=== PATIENT | male | born 1960 | race Hispanic/Latino ===

== ENCOUNTER 2023-07-24 11:20 | Emergency (ER) | payer OTHER ==
--- OUTSIDE RECORDS SUMMARY | 2023-07-24 11:23 | XMS REPORT | Continuity of Care Document ---
:1960 Author Organization [facility] t Address [address] [place] [address] Care Team Providers Name Role Phone Asked, No Pcp Primary Care Physician Unavailable Padilla Stark MD Attending Clinician ADRIANE SEPULVEDA Attending Clinician Unavailable JOHN NARAYAN Attending Clinician Unavailable Nurse, [facility] Attending Clinician Unavailable Lab, [facility] Pob I Attending Clinician Unavailable Carmen Gordon PA-C Attending Clinician Therapy, [facility] Covid Infusion Attending Clinician Unavailable Armando Mukherjee MD Attending Clinician ARMANDO MUKHERJEE Attending Clinician Unavailable Fernando Avelar Attending Clinician Doctor Unassigned, [place] Attending Clinician Unavailable Teresa Hutton Attending Clinician TERESA MONTERO Attending Clinician Unavailable Payers Payer Name Policy Type Policy Number Effective Date Expiration Date S ource Problems Condition Condition Condition Status Onset Resolution Last Treating Co mments Source Name Details Category Date Date Treatment Clinician Date No known No known Disease Unive rs active active ity of problems problems [facility] Allergies, Adverse Reactions, Alerts Allergy Allergy Status Severity Reaction(s) Onset Inactive Treating Comm ents Source Name Type Date Date Clinician NO KNOWN Drug Active Univers ALLERGIE Class ity of S [facility] Social History Social Habit Start Date Stop Date Quantity Comments Source Exposure to Yes [facility] SARS-CoV-2 (event) Medica l Branch Gender identity [facility] Sexual orientation Method ist [facility] Sex Assigned At [birth year] [facility] 00:00:00 00:00:00 Smoking Status Start Date Stop Date Source Tobacco smoking consumption unknown [facility] Medications Ordered Filled Start Stop Current Ordering Indication Dosage Frequency Signature Comments Components Source Medication Medication Date Date Medication? Clinician (SIG) Name Name vera 2020- No 700mg 700 mg, IV Univers b (EUA) 700 12-08 Infusion, it y of mg in NaCl 14:45: 15:35 ONCE, Wed [place] 0.9% (NS) 00 :00 12/08/20 at Medic al 270 mL 0845, For Branch infusion 1 dose
Ad manager stars as an IV infusion over 60 minutes through a PVC infusion set containing a 0.2 or 0.22 micron in-line polyethers ulfone filter.&nb sp; S low or stop infusion and treat as appropriat e if an infusion-r elated reaction occurs. Dilu domo infusion solution should be administer ed immediatel y. If immediate administra tion is not possible, store diluted bamlanivim ab infusion solution for up to 24 hours refrigerat ed at 2?C to 8?C (36?F to 46?F) or up to 7 hours at 20?C to 25?C (68?F to 77?F) including infusion time.<b r> vera No 700mg 700 mg, IV Univers b (EUA) 700 12-08 Infusion, it y of mg in NaCl 14:45: 15:35 ONCE, Wed [place] 0.9% (NS) 00 :00 12/08/20 at Medic al 270 mL 0845, For Branch infusion 1 dose
Ad manager stars as an IV infusion over 60 minutes through a PVC infusion set containing a 0.2 or 0.22 micron in-line polyethers ulfone filter.&nb sp; S low or stop infusion and treat as appropriat e if an infusion-r elated reaction occurs. Dilu domo infusion solution should be administer ed immediatel y. If immediate administra tion is not possible, store diluted bamlanivim ab infusion solution for up to 24 hours refrigerat ed at 2?C to 8?C (36?F to 46?F) or up to 7 hours at 20?C to 25?C (68?F to 77?F) including infusion time.<b r> No known No Univers medications [facility] No known No [facility] No known No [facility] No known No Univers medications [facility] Vital Signs Vital Name Observation Time Observation Value Comments Source Systolic blood 2020-12-08 16:09:00 118 mm[Hg] Univer sity [facility] Diastolic blood 2020-12-08 16:09:00 75 mm[Hg] Unive [facility] Heart rate 2020-12-08 16:09:00 93 /min [facility] Body temperature 2020-12-08 16:09:00 36.22 Lyndsey [facility] Respiratory rate 2020-12-08 16:09:00 20 /min [facility] Oxygen saturation in 2020-12-08 16:09:00 95 /min [facility] Arterial blood by [facility] Pulse oximetry [place] Body height 2020-12-08 13:53:00 165.1 cm [facility] Body weight 2020-12-08 13:53:00 78.019 kg [facility] BMI 2020-12-08 13:53:00 28.62 kg/m2 [facility] Procedures Procedure Date / Time Performed Performing Clinician [facility] e PHYSICIAN ORDERS 2020-12-07 06:01:00 Doctor Unassigned, No Unive [facility] Plan of Care Planned Activity Planned Date Details Comments Source Future Scheduled 2023-07-24 Hepatitis C screening [facility] Test 11:22:57 (procedure) [code = 094400093] Future Scheduled 2023-07-24 Screening for [facility] Test 11:22:57 malignant neoplasm of colon (procedure) [code = 635505847] Future Scheduled 2023-07-24 Screening for [facility] Test 11:22:57 malignant neoplasm of colon (procedure) [code = 136065068] Future Scheduled 2023-07-24 [facility]INGLES VACCINES (1 [facility] 11:22:57 of 2) [code = SHINGLES VACCINES (1 of 2)] Future Scheduled 2023-07-24 INFLUENZA VACCINE (#[facility]) [facility] Test 11:22:57 [code = INFLUENZA VACCINE (#1)] Future Scheduled 2023-07-24 65+ [facility]OCOCCAL [facility] Test 11:22:57 VACCINE (1 - PCV) [code = 65+ PNEUMOCOCCAL VACCINE (1 - PCV)] Future Scheduled 2023-07-24 Screening for [facility] Test 11:22:57 malignant neoplasm of colon (procedure) [code = 372173962] Future Scheduled 2023-07-24 Screening for [facility] Test 11:22:57 malignant neoplasm of colon (procedure) [code = 805233990] Future Scheduled 2023-07-24 Screening for [facility] Test 11:22:57 malignant neoplasm of colon (procedure) [code = 494737501] Future Scheduled 2023-07-24 COVID-19 VACCINE (#1) [facility] Test 11:22:57 [code = COVID-19 VACCINE (#1)] Future Scheduled 2021-12-[address] [facility] Hospital Test 16:39:28 (procedure) [code = 566110030] Future Scheduled 2021-12-06 COLONOSCOPY SCREENING [facility] Test 16:39:28 [code = COLONOSCOPY SCREENING] Future Scheduled 2021-12-06 SHINGLES VACCINES (#1) [facility] Test 16:39:28 [code = SHINGLES VACCINES (#1)] Future Scheduled 2021-12-06 INFLUENZA VACCINE [facility] Test 16:39:28 [code = INFLUENZA VACCINE] Future Scheduled 2021-12-06 COVID-19 VACCINE (1) Met [facility] Hospital Test 16:39:28 [code = COVID-19 VACCINE (1)] Encounters Start End Encounter Admission Attending Care Care Encounter Source Date/Time Date/Time Type Type Clinicians Facility Department ID 2021-07-20 2021-07-20 [facility] Padilla Stark [id number] [facility] 00:00:00 00:00:[address] Orders A. [address].1.[address] 3.430.2.7 Hospit a .3.862247 l .8 2021-06-24 2021-06-24 Outpatient Chela [facility] [id number] Univers 08:10:00 08:11:33 ADRIANE orquidea [facility] 2021-06-03 2021-06-03 Outpatient Chela [facility] [id number] Univers 08:20:00 08:11:00 ADRIANE [facility] 2021-05-31 2021-05-31 [facility] [id number] [place] 00:00:00 00:00:[address] 2021-02-25 2021-02-25 Travel 1.2.840.1 [id number] [id number] [facility] 00:00:00 00:00:[address] 3.430.2.7 0.2.7.3.698 Ho spita .3.685738 084.8 l .8 2020-12-22 2020-12-22 Letter Nurse, [place] [facility] [id number] Univers 00:00:00 00:00:00 (Out) Urgent Care Health 350.1.13.10 ity of Surgical 4.2.7.2.686 Dave as Specialti [phone] Il dical es 370 [facility] 2020-12-16 2020-12-16 Laboratory Lab, Adc [facility] Pob I [facility] 1.2. 840.114 [id number] Univers 16:11:37 16:31:37 [facility] 350.1.13.10 ity [facility] 4.2.7.2.686 Dave as Professio [phone] Il dical nal [address] 2020-12-16 2020-12-16 Outpatient R [facility] [id number] Univers 16:20:00 16:20:00 ity [facility] 2020-12-08 2020-12-08 Nurse Therapy, Ruma Covid Infusion [facility] 1.2.840.114 [id number] Univers 07:46:17 12:38:49 Visit Armando Mukherjee SPECIALTY 350.1.13.10 ity [place] [phone] [place] Sol[place] 2020-12-08 2020-12-08 Outpatient R MATHEUS [facility] [id number] Univers 08:00:00 08:00:00 ARMANDO ity of [facility] 2020-12-07 2020-12-07 Telephone Valentino [facility] 1.2.945.061 [id number] Univers 00:00:00 00:00:00 Fernando Chavez SPECIALTY 350.1.13.10 ity of [place]2.[place] [phone] [place] 2020-12-07 2020-12-07 Orders Doctor CARMEN 1.2.840.114 [id number] Univers 00:00:00 00:00:00 Only Unassigned, RAHEEL 350.1.13.10 ity of [facility] 4.2.7.2.686 Dave as [phone] [facility] 009 [place] 2020-12-06 2020-12-06 Laboratory Lab, Adc Fam Pob I [facility] 1.2. 840.114 [id number] Univers 18:58:08 19:18:08 Only Teresa Montero [facility] 350.1.13.10 ity of [place] 4.2.7.2.686 Dave as Professio [phone] [facility] 044 [place] Office [address] One 2020-12-06 2020-12-06 Outpatient R WINSTON [facility] [id number] Univers 19:00:00 19:00:00 TERESA young o f [facility] 2020-12-06 2020-12-06 Letter Doctor CARMEN 1.2.840.114 [id number] Univers 00:00:00 00:00:00 (Out) Unassigned, RAHEEL 350.1.13.10 ity of [facility] 4.2.7.2.686 Dave as [phone] [facility] 044 [place] Results This patient has no known results.
--- NOTE | 2023-07-24 13:42 | RAD REPORT ---
EXAM DESCRIPTION: CT - Head Brain Wo Cont - 07/24/2023 1:37 pm CLINICAL HISTORY: Headache;Dizziness Headache, drowsiness COMPARISON: No comparisons TECHNIQUE: All CT scans are performed using dose optimization technique as appropriate and may inclu de automated exposure control or mA/KV adjustment according to patient size. FINDINGS: No intracranial hemorrhage, hydrocephalus or extra-axial fluid collection.Mild to moderate generalized brain atrophy.No areas of brain edema or evidence of midline shift. The paranasal sinuses and mastoids are clear. The calvarium is intact. IMPRESSION: No acute intracranial abnormality.
[2023-07-24 14:00] LABS: Absolute Lymphocytes (CBC) 2.2 K/uL (0.7-4.9); Platelets 185 thou/uL (152-406)
[2023-07-24 14:07] LABS: Hematocrit 41.8 % (39.6-49.0); Lymphocytes % 41.5 % (15.3-44.8); MCV 100.7 fL (80-100); MPV 6.9 fL (7.6-11.3); RBC Red Blood Cell Count 4.16 M/uL (4.33-5.43)
[2023-07-24 14:20] LABS: Troponin High Sensitivity 4.3 pg/mL (<58.9)
[2023-07-24] MEDS ORDERED: DIPHENHYDRAMINE 50 MG/ML VIAL ONE (14:20)
[2023-07-24] MEDS ORDERED: DIPHENHYDRAMINE 12.5MG/5ML LIQ ONE (14:20)
[2023-07-24] MEDS ORDERED: NA CHLORIDE 0.9% 1,000 ML ONE (14:20)
[2023-07-24] MEDS ORDERED: KETOROLAC 30 MG/ML INJ ONE (14:20)
[2023-07-24] MEDS ORDERED: METOCLOPRAMIDE 10 MG/2mL INJ ONE (15:11)
--- NOTE | 2023-07-24 15:27 | EDPHYS ---
Physician Documentation [facility] Name: Neto Anderson Age: 63 yrs Sex: Male : 1960 Arrival Date: 07/24/2023 Time: 11:20 Bed 24 Private MD: Fernando Avelar B ED Physician Sourav Morales HPI: 07/24 11:50 This 63 yrs old Male presents to ER via Wheelchair with complaints of aj3 Dizziness, Weakness, Headache. 11:50 Patient is presenting with daughter and for worsening dizziness, lethargy and aj3 headache has been present since last week after starting metformin for recent diagnosis diabetes. He reports that he has to close his eyes to prevent him from feeling dizzy as he feels like he is spinning. No reports of any numbness/tingling, speech changes, acute vision changes, chest pain or shortness of breath. Historical: - Allergies: 11:42 No Known Allergies; jl7 - Home Meds: 11:42 Metformin Oral [Active]; jl7 - PMHx: 11:42 Hyperlipidemia; Diabetes mellitus; jl7 - Immunization history:: Adult Immunizations unknown. - Social history:: Smoking status: Patient denies any tobacco usage or history of. ROS: 11:50 Constitutional: Negative for fever, chills, and weight loss, Cardiovascular: Negative aj3 for chest pain, palpitations, and edema, Respiratory: Negative for shortness of breath, cough, wheezing, and pleuritic chest pain, Skin: Negative for injury, rash, and discoloration, 11:50 Neck: Positive for pain with movement, 11:50 Neuro: Positive for dizziness, headache, weakness, Negative for altered mental status, gait disturbance, numbness, syncope, tinnitus, tremor, visual changes, Exam: 11:50 Constitutional: This is a well developed, well nourished patient who is awake, alert, aj3 and in no acute distress. Neck: Supple, full range of motion without nuchal rigidity. Chest/axilla: Normal chest wall appearance and motion. Nontender with no deformity. No lesions are appreciated. Cardiovascular: Regular rate and rhythm with a normal S1 and S2. No gallops, murmurs, or rubs. Normal PMI, no JVD. No pulse deficits. Respiratory: Lungs have equal breath sounds bilaterally, clear to auscultation and percussion. No rales, rhonchi or wheezes noted. No increased work of breathing, no retractions or nasal flaring. Abdomen/GI: Soft, non-tender, with normal bowel sounds. No distension or tympany. No guarding or rebound. No evidence of tenderness throughout. Skin: Warm, dry with normal turgor. Normal color with no rashes, no lesions, and no evidence of cellulitis. MS/ Extremity: Pulses equal, no cyanosis. Neurovascular intact. Full, normal range of motion. 11:50 Eyes: Pupils equal round and reactive to light, extra-ocular motions intact. Lids and lashes normal. Conjunctiva and sclera are non-icteric and not injected. Cornea within normal limits. Periorbital areas with no swelling, redness, or edema. 11:50 Neuro: Orientation: is normal, appropriate for stated age, Cranial nerves: CN II- XII are normal as tested, Cerebellar function: is grossly normal, 14:35 ECG was reviewed by the Attending Physician. aj3 Vital Signs: 11:41 BP 138 / 79; Pulse 51; Resp 17; Temp 97.9; Pulse Ox 99% ; jl7 12:10 BP 143 / 81; Pulse 50; Resp 16; Pulse Ox 96% ; Pain 0/10; dd1 13:43 BP 145 / 73; Pulse 78; Resp 18; Pulse Ox 95% ; dd1 14:49 BP 131 / 77; Pulse 45; Resp 18; Pulse Ox 99% ; Pain 0/10; dd1 12:10 Pain Scale: Adult dd1 14:49 Pain Scale: Adult dd1 NIH Stroke Scale Scores: 11:50 NIHSS Score: 0 aj3 15:44 NIHSS Score: 0 dd1 [place] Coma Score: 11:50 Eye Response: spontaneous(4). Motor Response: obeys commands(6). Verbal Response: aj3 oriented(5). Total: 15. MDM: 11:46 Patient medically screened. aj3 12:00 Differential diagnosis: cardiac arrhythmia, CVA, head injury, near-syncope, syncope, aj3 TIA, vertigo. 14:40 Data reviewed: vital signs, nurses notes, lab test result(s), EKG, radiologic studies, aj3 CT scan, I have discussed the patient's presentation/case with the attending Emergency Department Physician;. I considered the following discharge prescriptions or medication management in the emergency department Medications were administered in the Emergency Department. See MAR. Independent interpretation of the following test(s) in the Emergency Department EKG: See my EKG interpretation above CT Scan: My interpretation is No head bleed noted. Independent interpretation of the following test(s) in the Emergency Department shelter monitor: rate is 50 beats/min, Rhythm is sinus bradycardia. Historians other than the Patient: Spouse/Significant Other: . Care significantly affected by the following chronic conditions: Hypertension. 14:40 Counseling: I had a detailed discussion with the patient and/or guardian regarding the 3 historical points, exam findings, and any diagnostic results supporting the discharge/admit diagnosis, lab results, radiology results, the need for outpatient follow up, to return to the emergency department if symptoms worsen or persist or if there are any questions or concerns that arise at home. Response to treatment: the patient's symptoms have markedly improved after treatment. 07/24 11:52 Order name: Glucose, Ancillary Testing; Complete Time: 13:23 EDOR 07/24 13:24 Order name: Basic Metabolic Panel; Complete Time: 14: 07/24 13:24 Order name: CBC with Diff; Complete Time: 14:07/24 13:24 Order name: Troponin HS; Complete Time: 14:31 07/24 13:24 Order name: CT Head Brain wo Cont; Complete Time: 13:46 07/24 13:24 Order name: EKG; Complete Time: 13:27 07/24 13:24 Order name: Cardiac monitoring; Complete Time: 13:58 07/24 13:24 Order name: EKG - Nurse/Tech; Complete Time: 14:38 07/24 13:24 Order name: IV Saline Lock; Complete Time: 13:58 07/24 13:24 Order name: Labs collected and sent; Complete Time: 13:58 07/24 13:24 Order name: O2 Per Protocol; Complete Time: :58 07/24 13:24 Order name: O2 Sat Monitoring; Complete Time: 13:58 EC:35 Rate is 47 beats/min. Rhythm is regular. QRS [place] is Normal. [place] interval is normal. QRS aj3 interval is normal. QT interval is normal. No ST changes noted. Clinical impression: Sinus bradycardia. Interpreted by me. Reviewed by me. Administered Medications: 14:16 Drug: Ketorolac IVP 15 mg IVP once Route: IVP; Site: right antecubital; dd1 14:16 Drug: NS 0.9% IV 1000 ml IV at 1000 ml once Route: IV; Rate: 1000 ml; Site: right dd1 antecubital; 15:46 Follow up: Response: No adverse reaction; IV Status: Completed infusion; IV Intake: dd1 1000ml 14:57 CANCELLED (Other Intervention Used): [id number] mg IVP once aj3 15:06 Drug: metoCLOPramide IVP 10 mg IVP once; over 1 to 2 minutes Route: IVP; Site: right dd1 antecubital; 15:07 Drug: diphenhydrAMINE IVP 12.5 mg IVP once Route: IVP; Site: right antecubital; dd1 Point of Care Testing: Blood Glucose: 11:42 Blood Glucose: 125 mg/dL; jl7 Ranges: Critical Glucose Levels:Adult <50 mg/dl or >400 mg/dl <40 mg/dl or >180 mg/dl Disposition: 20:21 I was immediately available on-site in the Emergency Department for consultation in the ms3 care of the patient. Disposition Summary: 07/24/23 15:27 Discharge Ordered Problem: new aj3 Symptoms: have improved aj3 Condition: Stable aj3 Diagnosis - Other headache syndrome aj3 - Dizziness and giddiness aj3 Followup: aj3 - With: Fernando Avelar MD - When: - Reason: Recheck today's complaints, Re-evaluation by your physician Followup: aj3 - With: Emergency Department - When: - Reason: Trouble breathing, Worsening of condition Discharge Instructions: - Discharge Summary Sheet aj3 Forms: - Medication Reconciliation Form aj3 - Thank You Letter aj3 - Antibiotic Education aj3 - Prescription Opioid Use aj3 - Patient Portal Instructions aj3 - Leadership Thank You Letter aj3 Prescriptions: - ketorolac 10 mg Oral tablet - take 1 tablet ORAL route every 8 hours as needed for pain; 9 tablet; Refills: aj3 0, Product Selection Permitted NIH Stroke Scale - NIH Stroke Score Date: 07/24/2023 Time: 11:50 Total Score = 0 10. Dysarthria (speech clarity - read or repeat words) - 0(Normal) 11. Extinction and Inattention (visual/tactile/auditory/spatial/personal) - 0(No abnormality) 1a. Level of Consciousness (LOC) - 0(Alert) 1b. Level of Consciousness (LOC) (Month \T\ Age) - 0(Both) 1c. LOC Commands (Open \T\ Closes Eyes/Digital Court Reporter) - 0(Both) 2. Best Gaze (Lateral Gaze Paresis) - 0(Normal) 3. Visual Field Loss - 0(No visual loss) 4. Facial Palsy - 0(Normal) 5a. Left Arm: Motor (10-second hold) - 0(No drift) 5b. Right Arm: Motor (10-second hold) - 0(No drift) 6a. Left Leg: Motor (5-second hold - always test supine) - 0(No drift) 6b. Right Leg: Motor (5-second hold - always test supine) - 0(No drift) 7. Limb Ataxia (finger/nose \T\ heel/serna - test with eyes open) - 0(Absent) 8. Sensory Loss (pinprick arms/legs/face) - 0(Normal) 9. Best Language: Aphasia (description/naming/reading) - 0(No aphasia) Initials: aj3 NIH Stroke Scale - NIH Stroke Score Date: 07/24/2023 Time: 15:44 Total Score = 0 10. Dysarthria (speech clarity - read or repeat words) - 0(Normal) 11. Extinction and Inattention (visual/tactile/auditory/spatial/personal) - 0(No abnormality) 1a. Level of Consciousness (LOC) - 0(Alert) 1b. Level of Consciousness (LOC) (Month \T\ Age) - 0(Both) 1c. LOC Commands (Open \T\ Closes Eyes/Digital Court Reporter) - 0(Both) 2. Best Gaze (Lateral Gaze Paresis) - 0(Normal) 3. Visual Field Loss - 0(No visual loss) 4. Facial Palsy - 0(Normal) 5a. Left Arm: Motor (10-second hold) - 0(No drift) 5b. Right Arm: Motor (10-second hold) - 0(No drift) 6a. Left Leg: Motor (5-second hold - always test supine) - 0(No drift) 6b. Right Leg: Motor (5-second hold - always test supine) - 0(No drift) 7. Limb Ataxia (finger/nose \T\ heel/serna - test with eyes open) - 0(Absent) 8. Sensory Loss (pinprick arms/legs/face) - 0(Normal) 9. Best Language: Aphasia (description/naming/reading) - 0(No aphasia) Initials: dd1 Signatures: Dispatcher [employer] Arina Jensen, RN RN jl7 Sourav Morales DO DO ms3 Jasmyn Haider, HEALTH AND SAFETY REPRESENTATIVE HEALTH AND SAFETY REPRESENTATIVE aj3 Red Morrissey RN RN dd1 Corrections: (The following items were deleted from the chart) 14:57 13:46 Prochlorperazine IVP 10 mg IVP once ordered. aj3 aj3
--- NOTE | 2023-07-24 15:27 | ER ---
Nurse's Notes [facility] Name: Neto Anderson Age: 63 yrs Sex: Male : 1960 Arrival Date: 07/24/2023 Time: 11:20 Bed 24 Private MD: Fernando Avelar B Diagnosis: Other headache syndrome;Dizziness and giddiness Presentation: 07/24 11:33 Chief complaint: Spouse and/or significant other states: Recently dx with DM, started jl7 on metformin 07/17/23, reports dizziness and weakness started 07/19/23. 11:41 Coronavirus screen: At this time, the client does not indicate any symptoms associated jl7 with coronavirus-19. Ebola Screen: No symptoms or risks identified at this time. No acute neurological deficit is noted. Pre-hospital glucose is not applicable to this patient. Initial Sepsis Screen: Does the patient meet any 2 criteria? No. Patient's initial sepsis screen is negative. Does the patient have a suspected source of infection? No. Patient's initial sepsis screen is negative. Risk Assessment: Do you want to hurt yourself or someone else? Patient reports no desire to harm self or others. Onset of symptoms was July 19, 2023. 11:41 Method Of Arrival: Wheelchair [facility] 11:41 Acuity: NISA 3 jl7 Triage Assessment: 11:42 The onset of the patients symptoms was July 19, 2023 at 12:00. General: Appears in jl7 no apparent distress. uncomfortable, Behavior is calm, cooperative, appropriate for age. Pain: Complains of pain in left ear Pain. Neuro: Reports dizziness. Stroke Activation: Symptom onset > 6 hours Physician: Stroke Attending; Name: ; Notified At: ; Arrived At: Physician: Chief Stroke Resident; Name: ; Notified At: ; Arrived At: Physician: Stroke Resident; Name: ; Notified At: ; Arrived At: Physician: ED Attending; Name: ; Notified At: ; Arrived At: Physician: ED Resident; Name: ; Notified At: ; Arrived At: Historical: - Allergies: 11:42 No Known Allergies; jl7 - Home Meds: 11:42 Metformin Oral [Active]; jl7 - PMHx: 11:42 Hyperlipidemia; Diabetes mellitus; jl7 - Immunization history:: Adult Immunizations unknown. - Social history:: Smoking status: Patient denies any tobacco usage or history of. Screenin:10 [facility] ED Fall Risk Assessment (Adult) History of falling in the last 3 months, dd1 including since admission No falls in past 3 months (0 pts) Confusion or Disorientation No (0 pts) Intoxicated or Sedated No (0 pts) Impaired Gait Yes (1 pt) Mobility Assist Device Used Yes (1 pt) Altered Elimination No (0 pt) Score/Fall Risk Level 3 or more points = High Risk. Abuse screen: Denies threats or abuse. Nutritional screening: No deficits noted. Tuberculosis screening: No symptoms or risk factors identified. Assessment: 15:44 VAN Scoring: Arm Drift: Patients demonstrates NO arm weakness. Patient is VAN Negative. dd1 TNKase (Tenecteplase) Screening: Contraindications: Rapidly improving condition or minor deficit: No. Vital Signs: 11:41 BP 138 / 79; Pulse 51; Resp 17; Temp 97.9; Pulse Ox 99% ; jl7 12:10 BP 143 / 81; Pulse 50; Resp 16; Pulse Ox 96% ; Pain 0/10; dd1 13:43 BP 145 / 73; Pulse 78; Resp 18; Pulse Ox 95% ; dd1 14:49 BP 131 / 77; Pulse 45; Resp 18; Pulse Ox 99% ; Pain 0/10; dd1 12:10 Pain Scale: Adult dd1 14:49 Pain Scale: Adult dd1 Gl[place]ora Coma Score: 11:50 Eye Response: spontaneous(4). Motor Response: obeys commands(6). Verbal Response: aj3 oriented(5). Total: 15. NIH Stroke Scale Scores: 11:50 NIHSS Score: 0 aj3 15:44 NIHSS Score: 0 dd1 ED Course: 11:21 Patient arrived in ED. rg4 11:21 Fernando Avelar MD is Private Physician. rg4 11:23 Jasmyn Haider NP is PHCP. aj3 11:23 Sourav Morales DO is Attending Physician. aj3 11:42 Triage completed. jl7 11:42 Arm band placed on right wrist. jl7 12:08 Red Morrissey, RN is Primary Nurse. dd1 12:10 Patient has correct armband on for positive identification. Bed in low position. Call dd1 light in reach. Side rails up X 1. Adult w/ patient. 13:37 CT Head Brain wo Cont In Process Unspecified. EDMS 15:26 Fernando Avelar MD is Referral Physician. aj3 15:45 Provided Education on: dc instructions given to pt. dd1 15:45 No provider procedures requiring assistance completed. IV discontinued. dd1 Administered Medications: 14:16 Drug: Ketorolac IVP 15 mg IVP once Route: IVP; Site: right antecubital; dd1 14:16 Drug: NS 0.9% IV 1000 ml IV at 1000 ml once Route: IV; Rate: 1000 ml; Site: right dd1 antecubital; 15:46 Follow up: Response: No adverse reaction; IV Status: Completed infusion; IV Intake: dd1 1000ml 14:57 CANCELLED (Other Intervention Used): [id number] mg IVP once aj3 15:06 Drug: metoCLOPramide IVP 10 mg IVP once; over 1 to 2 minutes Route: IVP; Site: right dd1 antecubital; 15:07 Drug: diphenhydrAMINE IVP 12.5 mg IVP once Route: IVP; Site: right antecubital; dd1 Medication: 12:10 VIS not applicable for this client. dd1 Point of Care Testing: Blood Glucose: 11:42 Blood Glucose: 125 mg/dL; jl7 Ranges: Intake: 15:46 IV: 1000ml; Total: 1000ml. dd1 Outcome: 15:27 Discharge ordered by . aj3 15:45 Discharged to home ambulatory, dd1 15:45 Condition: good 15:45 Discharge instructions given to patient, family, 15:46 Patient left the ED. dd1 NIH Stroke Scale - NIH Stroke Score Date: 07/24/2023 Time: 11:50 Total Score = 0 10. Dysarthria (speech clarity - read or repeat words) - 0(Normal) 11. Extinction and Inattention (visual/tactile/auditory/spatial/personal) - 0(No abnormality) 1a. Level of Consciousness (LOC) - 0(Alert) 1b. Level of Consciousness (LOC) (Month \T\ Age) - 0(Both) 1c. LOC Commands (Open \T\ Closes Eyes/Gluing Machine Operator) - 0(Both) 2. Best Gaze (Lateral Gaze Paresis) - 0(Normal) 3. Visual Field Loss - 0(No visual loss) 4. Facial Palsy - 0(Normal) 5a. Left Arm: Motor (10-second hold) - 0(No drift) 5b. Right Arm: Motor (10-second hold) - 0(No drift) 6a. Left Leg: Motor (5-second hold - always test supine) - 0(No drift) 6b. Right Leg: Motor (5-second hold - always test supine) - 0(No drift) 7. Limb Ataxia (finger/nose \T\ heel/serna - test with eyes open) - 0(Absent) 8. Sensory Loss (pinprick arms/legs/face) - 0(Normal) 9. Best Language: Aphasia (description/naming/reading) - 0(No aphasia) Initials: aj3 NIH Stroke Scale - NIH Stroke Score Date: 07/24/2023 Time: 15:44 Total Score = 0 10. Dysarthria (speech clarity - read or repeat words) - 0(Normal) 11. Extinction and Inattention (visual/tactile/auditory/spatial/personal) - 0(No abnormality) 1a. Level of Consciousness (LOC) - 0(Alert) 1b. Level of Consciousness (LOC) (Month \T\ Age) - 0(Both) 1c. LOC Commands (Open \T\ Closes Eyes/Gluing Machine Operator) - 0(Both) 2. Best Gaze (Lateral Gaze Paresis) - 0(Normal) 3. Visual Field Loss - 0(No visual loss) 4. Facial Palsy - 0(Normal) 5a. Left Arm: Motor (10-second hold) - 0(No drift) 5b. Right Arm: Motor (10-second hold) - 0(No drift) 6a. Left Leg: Motor (5-second hold - always test supine) - 0(No drift) 6b. Right Leg: Motor (5-second hold - always test supine) - 0(No drift) 7. Limb Ataxia (finger/nose \T\ heel/serna - test with eyes open) - 0(Absent) 8. Sensory Loss (pinprick arms/legs/face) - 0(Normal) 9. Best Language: Aphasia (description/naming/reading) - 0(No aphasia) Initials: dd1 Signatures: Dispatcher [employer] EDMS Judy Hanson rg4 Arina Pacheco, RN RN jl7 Jasmyn Haider, RAMONA MACHINE STAMPER aj3 Ghanshyam, Red, RN RN dd1
[2023-07-24 16:48] VITALS: TEMP 97.9
[2023-07-24 16:51] VITALS: BP 131/77; O2SAT 99
--- NOTE | 2023-07-25 14:33 | EKG ---
Test Date: 2023-07-24 Test Time: 14:35:17 [employer] Detail: L[place] MEASUREMENT RESULTS: Intervals: Rate: 47 MN: 150 QRSD: 92 QT: 450 QTc: 398 [place]: P: 42 MN: 150 QRS: 15 T: 29 INTERPRETIVE STATEMENTS: Marked sinus bradycardia Abnormal ECG Compared to ECG 04/11/2017 22:17:55 No significant changes Electronically Signed On 07-25-23 14:30:56 CDT by Forrest Valenet
== END 2023-07-24 15:46 | disposition home or self-care (01) ==
LOC: ER 11:20
DX: G44.89 Other headache syndrome (principal); R42 Dizziness and giddiness
CPT/HCPCS: 85025; 80048; 36415; 82947; 84484; 70450; J2765; J1200; J7030; 93005; Q0163

== ENCOUNTER 2024-01-31 08:00 | Day surgery (SDC) | payer OTHER ==
--- NOTE | 2024-01-29 14:24 | RAD REPORT ---
EXAM DESCRIPTION: RAD - Chest Pa And Lat (2 Views) - 01/29/2024 2:19 pm CLINICAL HISTORY: Pre op pending heart catheterization Chest pain. COMPARISON: Chest Single View dated 04/11/2017; CHEST SINGLE VIEW dated 03/16/2013 FINDINGS: The lungs are clear. The heart is normal in size. No displaced fractures. IMPRESSION: No acute or concerning finding suspected.
[2024-01-29 14:28] LABS: Absolute Basophils 0.1 K/uL (0-0.5); Absolute Eosinophils 0.3 K/uL (0-0.5); Absolute Lymphocytes (CBC) 1.8 K/uL (0.7-4.9); Absolute Monocytes 0.8 K/uL (0.1-1.3); Absolute Neutrophil 5.6 K/uL (1.8-8.0); Basophils % 0.8 % (0-1.3); Eosinophils % 3.9 % (0-4.4); Hematocrit 42.5 % (39.6-49.0); Lymphocytes % 21.4 % (15.3-44.8); MCH 35.1 pg (27.0-35.0); MCHC 35.3 g/dL (32.0-36.0); MCV 99.3 fL (80-100); MPV 6.9 fL (7.6-11.3); Monocytes % 9.2 % (3.3-12.3); Neutrophils % 64.7 % (41.7-73.7); Platelets 205 thou/uL (152-406); RBC Red Blood Cell Count 4.28 M/uL (4.33-5.43); Red Cell Distribution Width 13.1 % (12.1-15.2)
[2024-01-29 14:33] LABS: PT Prothrombin Time 12.1 SECONDS (9.5-12.5); PTT, Activated Partial Thromb 30.2 SECONDS (24.3-36.9); Protime INR 1.1
[2024-01-29 14:37] LABS: Anion Gap 9.3 mEq/L (5.0-15.0); Potassium 4.3 mEq/L (3.5-5.1)
--- NOTE | 2024-01-30 12:48 | EKG ---
Test Date: 2024-01-29 Test Time: 14:09:16 Supervising Bailiff: FLACA MEASUREMENT RESULTS: Intervals: Rate: 67 GA: 170 QRSD: 92 QT: 382 QTc: 403 [place]: P: 40 GA: 170 QRS: 13 T: 30 INTERPRETIVE STATEMENTS: Normal sinus rhythm Normal ECG Compared to ECG 07/24/2023 14:35:17 Sinus bradycardia no longer present Electronically Signed On 01-30-24 12:45:42 CDT by Forrest Valente
[2024-01-31] MEDS ORDERED: NA CHLORIDE 0.9% 500 ML ONE (08:34)
[2024-01-31] MEDS ORDERED: HEPA 1000U/500MLS 2,000 UNIT/1,000 ML BAG IV ONE (08:42)
[2024-01-31] MEDS ORDERED: FENTANYL CITR 100 MCG/2 ML ONE (08:42)
[2024-01-31] MEDS ORDERED: LIDOCAINE 1% 20 ML MDV ONE (08:42)
[2024-01-31] MEDS ORDERED: VERAPAMIL HCL 10 MG/4 ML VIAL IV ONE (08:42)
[2024-01-31] MEDS ORDERED: TICAGRELOR 90 MG TABLET PO ONE (08:43)
[2024-01-31] MEDS ORDERED: ATROPINE SULF 1 MG/10 ML SYR IV ONE (08:43)
[2024-01-31] MEDS ORDERED: MIDAZOLAM HCL 2 MG/2 ML INJ ONE (08:43)
[2024-01-31] MEDS ORDERED: HEPARIN 5000 UNIT/ML 1 ML VIAL ONE (08:43)
[2024-01-31] MEDS ORDERED: HEPARIN 10,000 UNIT/10 ML VIAL IV ONE (08:43)
[2024-01-31] MEDS ORDERED: ASPIRIN 325 MG TAB ONE (08:44)
[2024-01-31] MEDS ORDERED: CLOPIDOGREL 75 MG TABLET ONE (08:44)
[2024-01-31] MEDS: ASPIRIN 325 MG TAB PO ONE (09:00)
[2024-01-31 11:31] VITALS: TEMP 97.2
--- NOTE | 2024-01-31 12:09 | OP ---
Date of Procedure: 01/31/2024 Surgeon: Jai Kiser Procedures Performed: 1.Selective coronary angiogram. 2.Left heart catheterization. Indication For Procedure: Unstable angina and abnormal stress test. Complications: None. Estimated Blood Loss: Less than 50 cc. Sedation Time: 30 minutes. Access: Right radial closed by TR band. Description Of Procedure: After risks, benefits, and alternatives were explained to the patient, pat ient agreed to proceed with procedure and signed informed consent. The patient was brought into the cardiac cath, draped in a sterile fashion. Time-out was performed. Sedation was administered. Righ t radial access was obtained. 6-Scottish sheath was advanced with no complications. [place] 4 catheter was advanced over a J-wire to the LV. LVEDP was obtained. Pullback showed no gradient. Catheter wa s used to engage the right coronary artery, unable to engage the left coronary artery, so this cathet er was exchanged to a JL3 catheter and over a J-wire and used to engage the left coronary artery and selective angiograms were performed. Both catheters were removed at the end of the procedures with n o complications. Access was closed with a TR band. The patient was moved to recovery in stable cond ition. Findings: 1.Left main is normal. 2.LAD: Diffuse mild luminal irregularities. Mid 40% to 50% disease, but is inside the myocardial b ridge segment and then the LAD distally is small, bifurcates in 2 branches. 3.Left circ: Mild luminal irregularities. 4.RCA: Large, dominant. Mild luminal irregularities. Assessment: 1.Moderate mid left anterior descending disease, 40% to 50% atherosclerosis with inside the myocardi al bridge segment. 2.Normal filling pressure. Plan: Continue aggressive medical management for CAD. Avoid nitrates and may consider beta blockers , calcium channel blockers, but the patient heart rate is already slow, so we will continue to monito rShanika CORONADO/JOSE FRANCISCO Voice ID: [id number] Report ID: [id number]
[2024-01-31 13:18] VITALS: BP 147/82; O2SAT 97
== END 2024-01-31 13:00 | disposition home or self-care (01) ==
LOC: CCL 08:00
PROVIDERS: ATTEND Internal Medicine
DX: I25.110 Atherosclerotic heart disease of native coronary artery with unstable angina pectoris (principal); Q24.5 Malformation of coronary vessels; I10 Essential (primary) hypertension; E78.5 Hyperlipidemia, unspecified; E78.2 Mixed hyperlipidemia; Z79.82 Long term (current) use of aspirin; Z82.49 Family history of ischemic heart disease and other diseases of the circulatory system
CPT/HCPCS: 93005; 85025; 80048; 36415; 85610; 85730; 71046; 93458; 76937; C1893; Q9966; J1644; J2001; J2250; J3010; J7040; 99152; 99153; J0461